=== PATIENT | female | born 1940 | race Hispanic/Latino ===

== ENCOUNTER 2017-03-05 02:15 | Inpatient (IN) | payer MEDICARE ==
[~2017-03-05] VITALS: Ht 152.4 cm; Wt 57.6 kg
[~2017-03-05 02:15] MED LIST: ASPI-555 PO; CALC-1009 PO; ERGO500014 PO; FURO40TA5 PO; GLIP1TAB6 PO; INSNOV SQ; LEVO75TA10 PO; SIMV20TA6 PO; VITA1CAP17 PO
[2017-03-05 03:09] LABS: BASOPHILS % (AUTO) 0.6 % (0.0-5.0); EOSINOPHILS % (AUTO) 0.4 % (0.0-8.0); HEMATOCRIT 35.2 % (36-48); LYMPHOCYTES % (AUTO) 14.8 % (21.0-51.0); MEAN CORPUSCULAR HEMOGLOBIN 32.3 pg (27.0-33.0); MEAN CORPUSCULAR HGB CONC 34.7 g/dL (32.0-36.0); MONOCYTES % (AUTO) 5.2 % (3.0-13.0); PLATELET COUNT (AUTO) 301 K/uL (130-400); RED BLOOD CELL COUNT(AUTO) 3.79 MIL/uL (4.00-5.50); RED CELL DISTRIBUTION WIDTH 12.8 % (11.0-15.5); WHITE BLOOD COUNT (AUTO) 8.3 K/uL (4.8-10.8)
[2017-03-05 03:19] LABS: ALBUMIN 3.9 g/dL (3.5-5.0); BILIRUBIN,TOTAL 0.4 mg/dL (0.2-1.0); CREATININE 0.9 mg/dL (0.5-1.5); POTASSIUM 4.6 mmol/L (3.5-5.1); TOTAL PROTEIN, SERUM 7.7 g/dL (6.0-8.3)
[2017-03-05 03:34] LABS: CREATINE KINASE, TOTAL 71 U/L (21-232); MYOGLOBIN 59 ng/mL (10-92); TROPONIN I < 0.04 ng/mL (0.00-0.06)
[2017-03-05] MEDS ORDERED: ONDANSETRON HCL 4 MG/2 ML VIAL ONE (04:30)
[2017-03-05] MEDS ORDERED: METOCLOPRAMIDE 10 MG/2 ML VIAL ONE (04:30)
[2017-03-05] MEDS ORDERED: DiphenhydrAMINE HCL 50 MG/ML VIAL ONE (04:30)
[2017-03-05] MEDS ORDERED: SODIUM CHLORIDE 0.9% 1000ML 1,000 ML IV ONE (04:30)
[2017-03-05] MEDS ORDERED: SODIUM CHLORIDE 3% 500 ML IV ONE ×2 (06:00→09:00)
[2017-03-05] MEDS ORDERED: ERGOCALCIFEROL (VITAMIN D2) 50,000 UNIT CAPSULE PO SCH ×2 (06:30→12:34)
[2017-03-05] MEDS ORDERED: IOPAMIDOL-370 75 ML VIAL IV ONE (07:05)
[2017-03-05 07:39] LABS: APPEARANCE,URINE Clear (CLEAR); BILIRUBIN,URINE Negative (NEGATIVE); CHLORIDE,URINE RANDOM 72 mmol/L (110-250); COLOR,URINE Yellow (YELLOW); GLUCOSE, URINE (UA) >=1000 mg/dL (NEGATIVE); KETONES,URINE 15 mg/dL (NEGATIVE); LEUKOCYTE ESTERASE ,URINE Negative (NEGATIVE); NITRATE,URINE Negative (NEGATIVE); OCCULT BLOOD,URINE Negative (NEGATIVE); POTASSIUM,URINE RANDOM 20 mmol/L (25-125); PROTEIN,URINE Negative (NEGATIVE); SODIUM,URINE RANDOM 66 mmol/l (40-220); UROBILINOGEN,URINE 0.2 mg/dL (0.2-1.0)
[2017-03-05] MEDS ORDERED: GADOBENATE DIMEGLUMINE 20 ML IV ONE (07:45)
[2017-03-05 07:52] LABS: BACTERIA,URINE None Seen /HPF (None Seen); RBC,URINE None Seen /HPF (0-1); SQUAMOUS EPITHELIAL CELL,UR Rare /LPF (0-2); WBC,URINE None Seen /HPF (0-1)
[2017-03-05 08:51] LABS: BASOPHILS % (AUTO) 1.1 % (0.0-5.0); EOSINOPHILS % (AUTO) 0.2 % (0.0-8.0); HEMATOCRIT 34.4 % (36-48); LYMPHOCYTES % (AUTO) 16.5 % (21.0-51.0); MEAN CORPUSCULAR HEMOGLOBIN 32.5 pg (27.0-33.0); MEAN CORPUSCULAR VOLUME 92.7 fL (79-99); MONOCYTES % (AUTO) 4.5 % (3.0-13.0); NEUTROPHILS % (AUTO) 77.7 % (40.0-77.0); PLATELET COUNT (AUTO) 304 K/uL (130-400); RED BLOOD CELL COUNT(AUTO) 3.71 MIL/uL (4.00-5.50); RED CELL DISTRIBUTION WIDTH 12.5 % (11.0-15.5); WHITE BLOOD COUNT (AUTO) 8.8 K/uL (4.8-10.8)
[2017-03-05 08:59] LABS: CREATININE 0.9 mg/dL (0.5-1.5); MAGNESIUM 1.4 mg/dL (1.80-2.40)
[2017-03-05 12:08] VITALS: BP 120/59
[2017-03-05] MEDS ORDERED: FAMO-136 PO (12:29)
[2017-03-05] MEDS ORDERED: PHARMACY COMMUNICATION MISC SCH (12:30)
[2017-03-05] MEDS ORDERED: ASPIRIN 81MG TAB.CHEW ONE (13:16)
[2017-03-05] MEDS: CALCIUM 600 + VITAMIN D 400 TABLET PO SCH (13:22)
[2017-03-05] MEDS: INSULIN LISPRO 100 UNIT/ML 3ML SQ SCH ×2 (13:22→21:31)
[2017-03-05] MEDS: VITAMIN B COMPLEX 1 CAPSULE PO SCH (13:22)
[2017-03-05] MEDS: LEVOTHYROXINE 75 MCG TABLET PO SCH (13:22)
[2017-03-05 16:11] VITALS: BP 115/47
[2017-03-05 17:31] LABS: CREATININE 1.2 mg/dL (0.5-1.5); POTASSIUM 4.6 mmol/L (3.5-5.1)
[2017-03-05] MEDS: ASPIRIN 81 MG EC TAB PO SCH (17:59)
[2017-03-05] MEDS ORDERED: MAGNESIUM 4GM PREMIX 100ML 100 ML IV ONE (20:15)
[2017-03-05] MEDS: ATORVASTATIN CALCIUM 10 MG TABLET PO SCH (21:22)
[2017-03-05 22:09] VITALS: BP 145/56
[2017-03-06] VITALS (7 sets, daily range): BP systolic 130–173; BP diastolic 58–80
[2017-03-06 07:23] LABS: BASOPHILS % (AUTO) 0.6 % (0.0-5.0); EOSINOPHILS % (AUTO) 0.1 % (0.0-8.0); HEMATOCRIT 36.2 % (36-48); MEAN CORPUSCULAR HEMOGLOBIN 32.3 pg (27.0-33.0); MEAN CORPUSCULAR HGB CONC 34.6 g/dL (32.0-36.0); MEAN CORPUSCULAR VOLUME 93.3 fL (79-99); NEUTROPHILS % (AUTO) 82.3 % (40.0-77.0); PLATELET COUNT (AUTO) 325 K/uL (130-400); RED BLOOD CELL COUNT(AUTO) 3.88 MIL/uL (4.00-5.50); RED CELL DISTRIBUTION WIDTH 12.8 % (11.0-15.5); WHITE BLOOD COUNT (AUTO) 8.8 K/uL (4.8-10.8)
[2017-03-06 07:32] LABS: MAGNESIUM 2.4 mg/dL (1.80-2.40); POTASSIUM 4.7 mmol/L (3.5-5.1)
[2017-03-06] MEDS ORDERED: GLUCAGON 1MG KIT 1 MG ML IM PRN (08:15)
[2017-03-06] MEDS: AMLODIPINE BESYLATE 5 MG TAB PO SCH (09:10)
[2017-03-06] MEDS: LEVOTHYROXINE 75 MCG TABLET PO SCH (09:10)
[2017-03-06] MEDS: INSULIN LISPRO 100 UNIT/ML 3ML SQ SCH ×2 (09:23→21:21)
[2017-03-06] MEDS: CALCIUM 600 + VITAMIN D 400 TABLET PO SCH (12:03)
[2017-03-06] MEDS: VITAMIN B COMPLEX 1 CAPSULE PO SCH (12:03)
[2017-03-06] MEDS: INSULIN HUMULIN R 100 UNIT/ML 3ML SQ SCH ×3 (12:13→21:20)
[2017-03-06] MEDS: ASPIRIN 81 MG EC TAB PO SCH (17:08)
[2017-03-06] MEDS: ATORVASTATIN CALCIUM 10 MG TABLET PO SCH (21:21)
[2017-03-07] MEDS: DEXTROSE 50%-WATER 50 ML DISP.SYRIN IV PRN ×2 (00:15→03:47)
[2017-03-07 03:00] VITALS: BP 153/72
[2017-03-07 07:00] VITALS: BP 145/81
[2017-03-07] MEDS: INSULIN HUMULIN R 100 UNIT/ML 3ML SQ SCH ×4 (07:30→20:52)
[2017-03-07] MEDS ORDERED: ERGOCALCIFEROL (VITAMIN D2) 50,000 UNIT CAPSULE PO SCH (09:00)
[2017-03-07 09:03] LABS: HEMATOCRIT 36.9 % (36-48); MEAN CORPUSCULAR HEMOGLOBIN 32.3 pg (27.0-33.0); MEAN CORPUSCULAR HGB CONC 33.5 g/dL (32.0-36.0); MEAN CORPUSCULAR VOLUME 96.4 fL (79-99); PLATELET COUNT (AUTO) 322 K/uL (130-400); RED BLOOD CELL COUNT(AUTO) 3.83 MIL/uL (4.00-5.50); WHITE BLOOD COUNT (AUTO) 7.5 K/uL (4.8-10.8)
[2017-03-07] MEDS: AMLODIPINE BESYLATE 5 MG TAB PO SCH ×2 (09:08→20:43)
[2017-03-07] MEDS: LEVOTHYROXINE 75 MCG TABLET PO SCH (09:08)
[2017-03-07 09:13] LABS: CREATININE 1.2 mg/dL (0.5-1.5); POTASSIUM 4.9 mmol/L (3.5-5.1)
[2017-03-07] MEDS: INSULIN LISPRO 100 UNIT/ML 3ML SQ SCH ×2 (09:17→20:51)
[2017-03-07 11:10] VITALS: BP 138/75
[2017-03-07] MEDS: SODIUM CHLORIDE 3% 500 ML SIVP SCH (12:40)
[2017-03-07] MEDS: VITAMIN B COMPLEX 1 CAPSULE PO SCH (12:43)
[2017-03-07] MEDS: CALCIUM 600 + VITAMIN D 400 TABLET PO SCH (12:43)
[2017-03-07 15:40] VITALS: BP 155/81
[2017-03-07] MEDS: ASPIRIN 81 MG EC TAB PO SCH (16:55)
[2017-03-07 19:00] VITALS: BP 188/88
[2017-03-07] MEDS: ATORVASTATIN CALCIUM 10 MG TABLET PO SCH (20:43)
[2017-03-07] MEDS: CLONIDINE HCL 0.2 MG TABLET PO PRN (20:44)
[2017-03-07] MEDS ORDERED: INSULIN LISPRO 100 UNIT/ML 3ML SQ ONE (20:45)
[2017-03-07 23:00] VITALS: BP 128/61
[2017-03-08 04:00] VITALS: BP 113/55
[2017-03-08] MEDS: SODIUM CHLORIDE 3% 500 ML SIVP SCH (04:39)
[2017-03-08 05:04] LABS: BASOPHILS % (AUTO) 0.9 % (0.0-5.0); EOSINOPHILS % (AUTO) 3.1 % (0.0-8.0); HEMATOCRIT 30.4 % (36-48); LYMPHOCYTES % (AUTO) 30.4 % (21.0-51.0); MEAN CORPUSCULAR HEMOGLOBIN 33.6 pg (27.0-33.0); MEAN CORPUSCULAR HGB CONC 35.3 g/dL (32.0-36.0); MEAN CORPUSCULAR VOLUME 95.1 fL (79-99); MONOCYTES % (AUTO) 9.1 % (3.0-13.0); NEUTROPHILS % (AUTO) 56.5 % (40.0-77.0); NUCLEATED RED BLOOD CELLS 0.1 % (0.0-0.19); PLATELET COUNT (AUTO) 290 K/uL (130-400); RED CELL DISTRIBUTION WIDTH 13.2 % (11.0-15.5); WHITE BLOOD COUNT (AUTO) 6.8 K/uL (4.8-10.8)
[2017-03-08 05:21] LABS: CREATININE 0.8 mg/dL (0.5-1.5); POTASSIUM 4.4 mmol/L (3.5-5.1)
[2017-03-08 08:00] VITALS: BP 168/72
[2017-03-08] MEDS: LEVOTHYROXINE 75 MCG TABLET PO SCH (08:58)
[2017-03-08] MEDS: AMLODIPINE BESYLATE 5 MG TAB PO SCH ×2 (08:58→21:33)
[2017-03-08] MEDS: INSULIN LISPRO 100 UNIT/ML 3ML SQ SCH ×2 (09:04→21:39)
[2017-03-08 12:00] VITALS: BP 131/60
[2017-03-08] MEDS: CALCIUM 600 + VITAMIN D 400 TABLET PO SCH (13:13)
[2017-03-08] MEDS: VITAMIN B COMPLEX 1 CAPSULE PO SCH (13:13)
[2017-03-08] MEDS: INSULIN HUMULIN R 100 UNIT/ML 3ML SQ SCH ×3 (13:17→21:41)
[2017-03-08 16:00] VITALS: BP 130/84
[2017-03-08] MEDS: ASPIRIN 81 MG EC TAB PO SCH (16:44)
[2017-03-08 19:00] VITALS: BP 169/74
[2017-03-08] MEDS: CLONIDINE HCL 0.2 MG TABLET PO PRN (21:33)
[2017-03-08] MEDS: ATORVASTATIN CALCIUM 10 MG TABLET PO SCH (21:34)
[2017-03-08 23:58] VITALS: BP 128/60
[2017-03-09] MEDS: DEXTROSE 50%-WATER 50 ML DISP.SYRIN IV PRN (00:43)
[2017-03-09 04:00] VITALS: BP 113/55
[2017-03-09 05:08] LABS: HEMATOCRIT 31.7 % (36-48); MEAN CORPUSCULAR HEMOGLOBIN 32.4 pg (27.0-33.0); MEAN CORPUSCULAR HGB CONC 34.1 g/dL (32.0-36.0); PLATELET COUNT (AUTO) 303 K/uL (130-400); RED BLOOD CELL COUNT(AUTO) 3.34 MIL/uL (4.00-5.50); RED CELL DISTRIBUTION WIDTH 13.1 % (11.0-15.5); WHITE BLOOD COUNT (AUTO) 5.5 K/uL (4.8-10.8)
[2017-03-09 05:29] LABS: CREATININE 0.9 mg/dL (0.5-1.5); POTASSIUM 4.9 mmol/L (3.5-5.1)
[2017-03-09] MEDS: INSULIN HUMULIN R 100 UNIT/ML 3ML SQ SCH (06:17)
[2017-03-09 08:38] VITALS: BP 131/57
[2017-03-09] MEDS: INSULIN LISPRO 100 UNIT/ML 3ML SQ SCH ×3 (09:00→20:58)
[2017-03-09] MEDS: LEVOTHYROXINE 75 MCG TABLET PO SCH (10:55)
[2017-03-09] MEDS: AMLODIPINE BESYLATE 5 MG TAB PO SCH ×2 (10:55→20:52)
[2017-03-09] MEDS: CALCIUM 600 + VITAMIN D 400 TABLET PO SCH (10:58)
[2017-03-09] MEDS: VITAMIN B COMPLEX 1 CAPSULE PO SCH (10:58)
[2017-03-09 11:31] VITALS: BP 147/69
[2017-03-09 16:43] VITALS: BP 158/71
[2017-03-09] MEDS: ASPIRIN 81 MG EC TAB PO SCH (17:02)
[2017-03-09 19:35] VITALS: BP 186/85
[2017-03-09] MEDS: CLONIDINE HCL 0.2 MG TABLET PO PRN (20:52)
[2017-03-09] MEDS: ATORVASTATIN CALCIUM 10 MG TABLET PO SCH (20:52)
[2017-03-09 23:10] VITALS: BP 123/63
[2017-03-10 03:10] VITALS: BP 117/58
[2017-03-10 05:35] LABS: HEMATOCRIT 34.3 % (36-48); MEAN CORPUSCULAR HEMOGLOBIN 33.1 pg (27.0-33.0); MEAN CORPUSCULAR HGB CONC 34.8 g/dL (32.0-36.0); MEAN CORPUSCULAR VOLUME 95.2 fL (79-99); NUCLEATED RED BLOOD CELLS 0.1 % (0.0-0.19); PLATELET COUNT (AUTO) 307 K/uL (130-400); RED BLOOD CELL COUNT(AUTO) 3.61 MIL/uL (4.00-5.50); RED CELL DISTRIBUTION WIDTH 12.7 % (11.0-15.5); WHITE BLOOD COUNT (AUTO) 5.9 K/uL (4.8-10.8)
[2017-03-10 05:45] LABS: MAGNESIUM 1.9 mg/dL (1.80-2.40); POTASSIUM 5.1 mmol/L (3.5-5.1)
[2017-03-10 08:07] VITALS: BP 147/76
== END 2017-03-10 10:11 | disposition home or self-care (01) | DRG 641 ==
LOC: EDH 02:15 → EDHIP 04:18 → 4CH 10:48
PROVIDERS: ADMIT Family Medicine; ATTEND Family Medicine
DX: E87.1 Hypo-osmolality and hyponatremia (principal); E11.649 Type 2 diabetes mellitus with hypoglycemia without coma; E87.5 Hyperkalemia; E83.42 Hypomagnesemia; M48.56XA Collapsed vertebra, not elsewhere classified, lumbar region, initial encounter for fracture; J98.11 Atelectasis; I10 Essential (primary) hypertension
CPT/HCPCS: 36415; 70450; 70553; 71010; 71270; 80048; 80051; 80053; 81001; 82550; 82553; 82947; 82948; 83735; 83874; 83930; 83935; 84439; 84443; 84481; 84484; 84588; 85025; 85027; 93005; A9577; J1200; J1815; J2405; J2765; J3475; J3490; J7030; J7070; Q9967